=== PATIENT | male | born 1965 | race Caucasian/White ===

== ENCOUNTER 2022-04-14 14:10 | Emergency (ER) | payer OTHER, SELFPAY ==
[2022-04-14 14:50] VITALS: BP 115/70; PULSE 88; RESP 18; TEMP 36.8; O2SAT 99; BMI 22.0
[2022-04-14] MEDS: BACITRACIN OINT 0.9 GM PCKT 1 APPLIC TOP (15:44)
--- NOTE | 2022-04-14 15:49 | ED_ITS ---
HPI - Wound/Laceration <CHARITY Snider - Last Filed: 04/14/22 15:53> General Chief Complaint: Wound/Laceration Stated Complaint: Rt pinky finger laceration Time Seen by Provider: 04/14/22 15:14 Source: patient Mode of arrival: Ambulatory History of Present Illness HPI narrative: This is a 56-year-old male who presents to the emergency department with a laceration over the PIP of his 5th digit on his right hand. Patient is right- handed, states this happened yesterday morning, states that he put a Band-Aid on it and left it and the bleeding stopped. Denies any range of motion changes or sensory deficit. Patient states that his tetanus is not up-to-date, he denies any allergies, states he has a history of non-Hodgkin's lymphoma and is not currently under any treatment. Review of Systems <CHARITY Snider - Last Filed: 04/14/22 15:53> Review of Systems Narrative: General: denies fever, chills Head/Neck: denies headache, neck pain Eyes: denies visual changes, eye pain Cardio: denies chest pain, palpitations Respiratory: denies shortness of breath, cough GI: denies abdominal pain, nausea, vomiting, or diarrhea : denies dysuria, hematuria or flank pain MSK: denies new joint pain, muscle weakness or swelling Skin: Endorses right hand 5th digit laceration over his PIP joint Neuro: denies numbness, tingling, dizziness Patient History <CHARITY Snider - Last Filed: 04/14/22 15:53> Social History Smoking Status: Never smoker Smoking Status: Never smoker Substance Use Type: does not use Exam <CHARITY Snider - Last Filed: 04/14/22 15:53> Narrative Exam Narrative: Independently reviewed vitals signs and nursing notes. General: Awake, alert, nontoxic, no cardiorespiratory distress, anxious Head/Neck: Atraumatic, neck supple Eyes: EOMI, conjunctiva normal Nose: nares patent, no rhinorrhea Mouth/Throat: moist mucus membranes, posterior pharynx without erythema or lesion Cardio: Regular rate and rhythm, no peripheral edema Respiratory: respirations unlabored without wheezing, stridor, or rales. No retractions, hypoxia or tachypnea GI: Abdomen soft, nontender to palpation x4 quadrants, no guarding or rebound tenderness MSK: Moves all extremities, neurovascularly intact, range of motion without deficit Skin: Normal capillary refill, no rash, 1 cm avulsion laceration over the PIP on his right hand on the dorsum of his PIP joint, wound edges are well approximated, no erythema surrounding, no foreign body, this was cleansed with normal saline and chlorhexidine. Neuro: Normal speech and cognition, normal gait Initial Vital Signs Initial Vital Signs: Vital Signs Temperature 98.2 F 04/14/22 14:50 Pulse Rate 88 04/14/22 14:50 Respiratory Rate 18 04/14/22 14:50 Blood Pressure 115/70 04/14/22 14:50 Pulse Oximetry 99 04/14/22 14:50 Oxygen Delivery Method 04/14/22 14:50 <Carola Weiss DO - Last Filed: 04/15/22 07:41> Initial Vital Signs Initial Vital Signs: Vital Signs Temperature 98.2 F 04/14/22 14:50 Pulse Rate 88 04/14/22 14:50 Respiratory Rate 18 04/14/22 14:50 Blood Pressure 115/70 04/14/22 14:50 Pulse Oximetry 99 04/14/22 14:50 Oxygen Delivery Method 04/14/22 14:50 Course <CHARITY Snider - Last Filed: 04/14/22 15:53> Orders Ordered: Discontinued Medications Bacitracin (Bacitracin Oint 0.9 Gm Pckt) 1 applic TOP NOW ONE Stop: 04/14/22 15:36 Last Admin: 04/14/22 15:44 Dose: 1 applic Documented By: EB Bacitracin (Bacitracin 28 Gm Oint) 5 applic TOP NOW ONE Stop: 04/14/22 15:36 Diphtheria/Tetanus/Acell Pertussis (Tet,Diph,Pertuss(Acell),Vac/Pf 0.5 Ml Syringe) 0.5 ml IM .ONCE ONE Stop: 04/14/22 15:48 Last Admin: 04/14/22 15:57 Dose: 0.5 ml Documented By: AT Lidocaine HCl (Lidocaine 2% Inj Mdv) 1 ml SUBCUT NOW ONE Stop: 04/14/22 15:16 Lidocaine HCl (Lidocaine 2% Inj Mdv) 3 ml SUBCUT NOW ONE Stop: 04/14/22 15:16 Vital Signs Vital signs: Vital Signs - 8 hr 04/14/22 14:50 Temperature 98.2 F Pulse Rate 88 Respiratory Rate 18 Blood Pressure 115/70 Pulse Oximetry 99 Oxygen Delivery Method Room Air <Carola Weiss DO - Last Filed: 04/15/22 07:41> Orders Ordered: Discontinued Medications Bacitracin (Bacitracin Oint 0.9 Gm Pckt) 1 applic TOP NOW ONE Stop: 04/14/22 15:36 Last Admin: 04/14/22 15:44 Dose: 1 applic Documented By: EB Bacitracin (Bacitracin 28 Gm Oint) 5 applic TOP NOW ONE Stop: 04/14/22 15:36 Diphtheria/Tetanus/Acell Pertussis (Tet,Diph,Pertuss(Acell),Vac/Pf 0.5 Ml Syringe) 0.5 ml IM .ONCE ONE Stop: 04/14/22 15:48 Last Admin: 04/14/22 15:57 Dose: 0.5 ml Documented By: AT Lidocaine HCl (Lidocaine 2% Inj Mdv) 1 ml SUBCUT NOW ONE Stop: 04/14/22 15:16 Lidocaine HCl (Lidocaine 2% Inj Mdv) 3 ml SUBCUT NOW ONE Stop: 04/14/22 15:16 Vital Signs Vital signs: Vital Signs - 8 hr 04/14/22 14:50 Temperature 98.2 F Pulse Rate 88 Respiratory Rate 18 Blood Pressure 115/70 Pulse Oximetry 99 Oxygen Delivery Method Room Air MDM - Wound/Laceration <CHARITY Snider - Last Filed: 04/14/22 15:53> MDM Narrative Medical decision making narrative: This is a 36-year-old male who presents to the emergency department with a 1 cm laceration over the PIP on his right hand. Patient is right-handed, states this happened yesterday morning, it was cleansed with normal saline and chlorhexidine, patient's tetanus was updated today, patient endorses he has a history of non-Hodgkin's lymphoma and is not currently on any treatment. Allo wed wound to heal by secondary intention, covered with bacitracin, there was no surrounding erythema, finger was splinted with a Band-Aid over the PIP joint to prevent from reopening the wound. Patient is appropriate and amenable to discharge home. Vital signs are stable on repeat examination is unremarkable. Patient has been informed of results. Patient has been given strict return to ER precautions for any new or worsening symptoms. Patient understands to follow up closely with outpatient providers as instructed. Patient understands plan and agrees to discharge home. All questions and concerns answered at this time. Discharge Plan Departure Patient Disposition: Home Clinical Impression: Laceration Instructions: DI for Minor Laceration Activity Restrictions/Additional Instructions: *You have been diagnosed with a laceration of your 5th digit on your right hand, please keep this clean, you may wash your hands with soap and water twice a day but do not scrub over the wound. Put antibiotic ointment on and a Band-Aid keep it clean until it heals. Try to prevent your pinky finger from bending over the joint where the cut is. If you develop redness or streaking up your finger, please come back to the emergency department but this likely will not happen. This tetanus vaccination means you do not need one for another 10 years. Take Tylenol as needed for pain, you may ice it if it is painful, keep it elevated so does not get too swollen. Happy forth of April. *What to do: *Please continue to take your regular medications as directed. [ ] New medication prescriptions sent to your pharmacy: [ ] [ ] New medication written as a paper prescription [ x] No new medications given *Please follow up with your primary care provider in 2-3 days, call for an appointment. Let them know you were seen in the Emergency Department and that we asked that you be seen for follow-up. We will electronically transmit a record of today's note if your PCP is in our system *If you do not have a primary care provider please contact [phone] to establish care with one of the [facility] primary care providers. *Return to Emergency Department if you should have any new, worsening or concerning symptoms, such as [fever greater than 101F, chills, worsening pain, persistent vomiting or other bothersome symptoms] Visit Report Forms: Patient Portal/API <Carola Weiss DO - Last Filed: 04/15/22 07:41> [facility] Attestation: I was immediately available in the department for consultation. Documentation has been reviewed. I agree with assessment and plan.
[2022-04-14] MEDS: TET,DIPH,PERTUSS(ACELL),VAC/PF 0.5 ML SYRINGE IM (15:57)
== END 2022-04-14 16:01 | disposition home or self-care (01) ==
PROVIDERS: Emergency Provider Nurse Practitioner Critical Care Medicine
DX: S61.216A Laceration without foreign body of right little finger without damage to nail, initial encounter (principal); X58.XXXA Exposure to other specified factors, initial encounter; Z23 Encounter for immunization
CPT/HCPCS: 90471; 99283; 90715